=== PATIENT | male | born 1930 | race Caucasian/White ===

== ENCOUNTER 2019-09-12 13:22 | Inpatient (IN) | payer MEDICARE ==
[2019-09-12] MEDS ORDERED: Ondansetron PF 4 MG/2 ML Vial IVP PRN (15:28)
[2019-09-12 16:06] LABS: Hemoglobin 15.4 g/dL (14.0-18.0); Mean Corpuscular HGB CONC 33.6 g/dL (32.0-36.0); Mean Corpuscular Hemoglobin 32.1 pg (27.0-31.0); Mean Corpuscular Volume 95.5 fL (78.0-98.0); Mean Platelet Volume 6.6 fL (7.4-10.4); Platelet Count 224 thou/uL (130-400); RBC Distribution Width 12.6 % (11.5-14.5); Red Blood Cell (RBC) Count 4.79 mill/uL (4.70-6.10); White Blood Cell (WBC) Count 28.9 thou/uL (4.8-10.8)
[2019-09-12 16:15] LABS: ALT (SGPT) 21 U/L (8-55); AST (SGOT) 23 U/L (5-34); Albumin 4.1 g/dL (3.4-4.8); Alkaline Phosphatase 81 U/L (40-110); Anion Gap 13 mmol/L (10-20); BUN (Urea Nitrogen) 13 mg/dL (8.4-25.7); Bilirubin, Total 1.9 mg/dL (0.2-1.2); Calc. Creatinine Clearance 0 mL/min (70-130); Calcium 9.7 mg/dL (7.8-10.44); Carbon Dioxide 29 mmol/L (23-31); Chloride 98 mmol/L (98-107); Estimated GFR-MDRD 67; Globulin 2.6 g/dL (2.4-3.5); Glucose 95 mg/dL (83-110); Protein, Total 6.7 g/dL (5.8-8.1); Sodium 136 mmol/L (136-145)
[2019-09-12 16:36] LABS: Band 1 % (5-11); Eosinophils 1 % (0-10); Lymphocytes 72 % (21-51); MDiff Complete? YES; Monocytes 4 % (0-10); Neutrophil 22 % (42-75)
[2019-09-12 17:37] VITALS: BMI 24.3
[2019-09-12] MEDS ORDERED: Bupivacaine/Epinephrine 0.5% 10 ML VIAL IJ SCH (18:30)
--- NOTE | 2019-09-12 21:30 | OP ---
DATE OF PROCEDURE: 09/12/2019 PREPROCEDURE DIAGNOSES: 1. Gross hematuria. 2. Clot retention. 3. Ewing trauma. 4. History of urinary retention. POSTPROCEDURE DIAGNOSES: 1. Gross hematuria. 2. Clot retention. 3. Ewing trauma. 4. History of urinary retention. 5. Benign prostatic hypertrophy with obstruction. PROCEDURES: 1. Cystourethroscopy. 2. Complicated Ewing catheter placement over Glidewire. BRIEF HISTORY: Mr. Ras Bess is a pleasant 89-year-old white male with a degree of dementia, who presented to the emergency room, [facility] jail due to traumatic Ewing catheterization with gross blood per urethra. Patient had failed Ewing catheter placement x4 reportedly as outpatient and two attempted catheterizations here failed. I was consulted to evaluate and assess the patient at that point. Please see my separately dictated consultation evaluation note for this patient. Briefly, we found the patient having gross blood passing per urethra and recommended cystoscopic evaluation. Consent was obtained by telephone from the patient's daughter. The patient assented to the procedure. Following appropriate time-out, we proceeded with cystoscopic evaluation of the patient. We initially prepped and draped the patient using Betadine. The patient's phimotic foreskin was found to be in the retracted position on initial evaluation. This caused some edema of the glans penis and we did end up having to perform a glans reduction as a portion of the procedure as well. Cystoscopic evaluation was performed using a 14-[place] cystourethroscope fiberoptic type. We instilled 5 mL of 2% viscous lidocaine jelly per urethra. After installation of viscous lidocaine jelly per urethra, we accessed the patient's urethra using the flexible cystoscope. We did not find any traumatic areas from balloon-type trauma in the urethra. There were a couple of small false passages which were bleeding. The irrigation was adequate to allow us to find the urinary sphincter and bypassed this in the patient's prostatic urethra, which was irregularly shaped. Patient's bladder was entered. This was relatively dark. There was some clot material present in the patient's bladder as well as blood. Due to murky conditions, this was a limited cystoscopic evaluation. We passed a 0.035 angled Glidewire into the patient's bladder through the scope leaving the wire in place. We then converted to a 3-way silastic Ewing catheter into a Councill tip catheter by passing a 20-gauge needle through the very tip of the catheter. We then passed this catheter over the wire into the patient's bladder. We then filled the balloon to 30 mL. The patient's bladder was drained of a liter of urine. A urine specimen was later collected for culture from this. We then placed the catheter to 3-way irrigation using sterile water initially to be followed by sterile saline later in the day. At the present time, patient has hematuria controlled by continuous bladder irrigation. Patient's catheter lines were taped to the left leg. Patient tolerated the procedure well with no complications in evidence. Job ID: [id number]
[2019-09-12] MEDS: Acetaminophen 325 MG TAB PO PRN (22:59)
[2019-09-12] MEDS ORDERED: Zolpidem Tartrate 5 MG TAB PO SCH (23:00)
[2019-09-13 05:20] LABS: Anion Gap 11 mmol/L (10-20); BUN (Urea Nitrogen) 15 mg/dL (8.4-25.7); Calc. Creatinine Clearance 74 mL/min (70-130); Calcium 8.9 mg/dL (7.8-10.44); Carbon Dioxide 26 mmol/L (23-31); Chloride 101 mmol/L (98-107); Estimated GFR-MDRD 86; Glucose 87 mg/dL (83-110); Potassium 3.7 mmol/L (3.5-5.1); Sodium 134 mmol/L (136-145)
[2019-09-13 06:22] LABS: Hemoglobin 13.4 g/dL (14.0-18.0); Mean Corpuscular HGB CONC 34.1 g/dL (32.0-36.0); Mean Corpuscular Hemoglobin 32.3 pg (27.0-31.0); Mean Corpuscular Volume 94.6 fL (78.0-98.0); Mean Platelet Volume 6.7 fL (7.4-10.4); Platelet Count 194 thou/uL (130-400); RBC Distribution Width 12.5 % (11.5-14.5); Red Blood Cell (RBC) Count 4.14 mill/uL (4.70-6.10); White Blood Cell (WBC) Count 20.9 thou/uL (4.8-10.8)
[2019-09-13 06:47] LABS: Eosinophils 1 % (0-10); Lymphocytes 60 % (21-51); MDiff Complete? YES; Monocytes 3 % (0-10); Neutrophil 33 % (42-75); Reactive Lymphocytes 3 % (0-10)
[2019-09-13] MEDS ORDERED: Lisinopril 20 MG TAB PO PRN (08:04)
[2019-09-13] MEDS: Tamsulosin HCl 0.4 MG CAP PO SCH (10:25)
[2019-09-13] MEDS: Hydrochlorothiazide 25 MG TAB PO SCH (10:25)
--- NOTE | 2019-09-13 15:32 | CON ---
DATE OF CONSULTATION: 09/13/2019 REASON FOR CONSULTATION: 1. Gross hematuria. 2. Clot retention. 3. Ewing trauma. 4. History of urinary retention with current urinary retention. 5. Prostate hypertrophy with obstruction. BRIEF HISTORY: Mr. Ras Bess is a pleasant 89-year-old white male with dementia, who was brought to the emergency room, transferred from his detention due to traumatic Ewing catheterization with gross blood per urethra. The patient was thought to be in urinary retention and subsequently was proven to be yesterday with placement of Ewing catheter returned about a liter of urine. The patient in general relief from his lower abdominal discomfort at that point. At present time, the patient is doing much better. He does have an indwelling Ewing catheter, which still evidence of some gross hematuria, this is a very low level. The patient reports a sensation that he needs to void consistent with bladder spasms. He has had some blood passed around the outside of the catheter, which was normal in the bladder spasm situation, does have a fair amount of blood in that, but this is less than was observed yesterday. Overall, Mr. Bess is doing well. PHYSICAL EXAMINATION: VITAL SIGNS: The patient's temperature is 97.2, pulse 94, respirations 18, room air saturation is 95%, blood pressure is 137/72. GENERAL: Pleasant, awake, alert white male. He has memory deficits over the short haul. Does have some good recall for distant events and family member names, etc. LUNGS: Clear bilaterally. CARDIAC: Regular rate and rhythm. ABDOMEN: Soft and nontender. BACK: No costovertebral tenderness on either side. No spine tenderness. GENITOURINARY: Indwelling 3-way Ewing catheter remains in place. CBI is at very low rate. The continuous bladder irrigation has been titrated down to a low enough level that urine is only pink at this point. The patient does have some blood which passes around the catheter. This is evident on his bedside commode. This is apparently well straining or when having bladder spasms. Catheter is correctly attached to the patient's leg using Microfoam tape. EXTREMITIES: Otherwise within normal limits. LABORATORY STUDIES: The patient's white count is decreased to 20,900 today. Hemoglobin is 13.4 with hematocrit of 39.2, platelet count is 194, minimally decreased from yesterday. Percent neutrophil count is 33, increased from yesterday when it was 22. Serum chemistry showed the patient's creatinine down to 0.84 today. Blood urea nitrogen at 15. The patient's urinary sodium is slightly decreased to 134 from 136 yesterday. Microbiology; urine culture remains pending. ASSESSMENT AND PLAN: 1. Gross hematuria. The patient is still having some degree of bleeding and continuous bladder irrigation is still indicated. 2. Presumed urinary tract infection due to retention. The patient is on appropriate antibiotic coverage at the present time and culture is pending. 3. Indurated prostate gland with outlet obstruction. I am planning on starting the patient on finasteride today and did recommend going ahead and obtaining a PSA test. The patient does not have a PSA test on record in this facility. 4. Outlet obstruction. The patient needs maximal medical therapy and is on tamsulosin. I am recommending continuation of that and adding finasteride to his mix as this may also decrease the diameter of some of the blood vessels in his prostate and decrease overall bleeding. 5. Bladder spasms. The patient was started on VESIcare 5 mg p.o. daily. Belladonna and opioid suppositories could be used acutely in this patient. However, due to his age, the narcotic load may be significant, therefore would recommend pediatric size B and O suppositories to be utilized if necessary. Over 35 minutes of consultation assessment and evaluation time was spent in the assessment of this patient exclusive of any procedures performed. Job ID: [id number]
[2019-09-13] MEDS ORDERED: Zolpidem Tartrate 5 MG TAB PO SCH (21:00)
[2019-09-13] MEDS: Trospium 20 MG TAB PO SCH (21:04)
[2019-09-13] MEDS: Acetaminophen 325 MG TAB PO PRN (21:04)
[2019-09-13] MEDS: Atorvastatin Calcium 10 MG TAB PO SCH (21:04)
[2019-09-14 05:34] LABS: Anion Gap 13 mmol/L (10-20); BUN (Urea Nitrogen) 19 mg/dL (8.4-25.7); Calc. Creatinine Clearance 65 mL/min (70-130); Calcium 9.2 mg/dL (7.8-10.44); Carbon Dioxide 25 mmol/L (23-31); Chloride 101 mmol/L (98-107); Estimated GFR-MDRD 74; Glucose 97 mg/dL (83-110); Potassium 3.9 mmol/L (3.5-5.1); Sodium 135 mmol/L (136-145)
[2019-09-14] MEDS: Levothyroxine Sodium 50 MCG TAB PO SCH (05:52)
[2019-09-14 07:49] LABS: Band 2 % (5-11); Eosinophils 2 % (0-10); Hemoglobin 13.9 g/dL (14.0-18.0); Lymphocytes 55 % (21-51); MDiff Complete? YES; Mean Corpuscular HGB CONC 33.9 g/dL (32.0-36.0); Mean Corpuscular Hemoglobin 32.3 pg (27.0-31.0); Mean Corpuscular Volume 95.2 fL (78.0-98.0); Mean Platelet Volume 6.7 fL (7.4-10.4); Monocytes 8 % (0-10); Neutrophil 33 % (42-75); Platelet Count 211 thou/uL (130-400); RBC Distribution Width 12.5 % (11.5-14.5); Red Blood Cell (RBC) Count 4.31 mill/uL (4.70-6.10); White Blood Cell (WBC) Count 27.4 thou/uL (4.8-10.8)
[2019-09-14] MEDS: Trospium 20 MG TAB PO SCH ×2 (09:12→20:28)
[2019-09-14] MEDS: Hydrochlorothiazide 25 MG TAB PO SCH (09:12)
[2019-09-14] MEDS: Finasteride 5 MG TAB PO SCH (09:12)
[2019-09-14] MEDS: Tamsulosin HCl 0.4 MG CAP PO SCH (09:12)
[2019-09-14] MEDS ORDERED: Senokot S 8.6-50 MG TAB PO PRN (12:46)
--- NOTE | 2019-09-14 12:54 | PDOC.HOSPP ---
- Subjective Encounter Date: 09/14/19 Encounter Time: 12:45 Subjective: f/u gross hematuria on Xarelto in context of traumatic Simon catheter insertion , clot retention with urinary retention improved with Simon decompression and bladder irrigation. Receiving Levaquin with negative Ucx. - Objective Vital Signs & Weight: Vital Signs (12 hours) Temp Pulse Resp BP BP Pulse Ox 09/14/19 12:04 97.2 F L 102 H 16 104/72 97 09/14/19 07:52 97.4 F L 89 18 124/62 94 L 09/14/19 03:35 89 18 139/73 95 Weight Weight 189 lb 3.2 oz I&O: 09/13/19 09/14/19 09/15/19 06:59 06:59 06:59 Intake Total 3700 3220 100 Output Total 5575 7250 Balance -1875 -4030 100 Result Diagrams: 09/14/19 04:42 09/14/19 04:42 Additional Labs: Microbiology 09/07/19 03:12 Stool Stool Culture - Final 09/12/19 19:00 Urine simon catheter Urine Culture - Preliminary NO GROWTH AT 24 HOURS Laboratory Tests 09/12/19 09/13/19 09/13/19 15:40 04:37 12:56 WBC 28.9 H 20.9 H Prostate Specific Ag 9.61 H Hospitalist ROS - Medication Medications: Active Medications Generic Name Dose Route Start Last Admin Trade Name Freq PRN Reason Stop Dose Admin Acetaminophen 650 mg 09/12/19 15:28 09/13/19 21:04 Tylenol PO 650 mg Q4H PRN Administration Headache/Fever/Mild Pain (1-3) Atorvastatin Calcium 10 mg 09/13/19 21:00 09/13/19 21:04 Lipitor PO 10 mg HS NAVID Administration Finasteride 5 mg 09/14/19 09:00 09/14/19 09:12 Proscar PO 5 mg DAILY NAVID Administration Hydrochlorothiazide 25 mg 09/13/19 09:00 09/14/19 09:12 Hydrochlorothiazide PO 25 mg DAILY NAVID Administration Levofloxacin 500 mg/ Device 100 mls @ 100 mls/hr 09/13/19 08:00 09/14/19 09: 13 IVPB 100 mls 0800 NAVID Administration Levothyroxine Sodium 50 mcg 09/14/19 06:00 09/14/19 05:52 Synthroid PO 50 mcg 0600 NAVID Administration Tamsulosin HCl 0.4 mg 09/13/19 09:00 09/14/19 09:12 Flomax PO 0.4 mg DAILY NAVID Administration Trospium 20 mg 09/13/19 21:00 09/14/19 09:12 Trospium PO 20 mg BID NAVID Administration - Exam General Appearance: NAD, awake alert Eye: PERRL, anicteric sclera ENT: normocephalic atraumatic, no oropharyngeal lesions Neck: supple, symmetric, no JVD, no thyromegaly, no lymphadenopathy Heart: RRR, no gallops, no rubs, normal peripheral pulses Respiratory: CTAB, no wheezes, no rales, no ronchi Gastrointestinal: soft, non-tender, non-distended, normal bowel sounds, no palpable masses Extremities: no cyanosis, no clubbing, no edema Skin: normal turgor, no lesions Neurological: cranial nerve grossly intact, no new deficit Musculoskeletal: normal tone, generalized weakness Psychiatric: oriented to person, oriented to place Hosp A/P (1) Acute urinary retention Code(s): R33.8 - OTHER RETENTION OF URINE Status: Acute Plan: s/p Simon insertion with bladder decompression, continue Flomax/Vesicare/ Finasteride, appreciate Urology assistance (2) Gross hematuria Status: Acute Plan: Continue CBI, hold Xarelto, serial H/H (3) Chronic anticoagulation Code(s): Z79.01 - ENDOSCOPY NURSE (CURRENT) USE OF ANTICOAGULANTS Status: Chronic Plan: Hold Xarelto (4) Hypothyroid Code(s): E03.9 - HYPOTHYROIDISM, UNSPECIFIED Status: Chronic Plan: Continue Levothyroxine 50mcg daily (5) Leukocytosis Code(s): D72.829 - ELEVATED WHITE BLOOD CELL COUNT, UNSPECIFIED Status: Acute Qualifiers: Leukocytosis type: lymphocytosis Qualified Code(s): D72.820 - Lymphocytosis (symptomatic) Plan: Predominance of lymphocytes on differential, continue Levaquin, serial monitoring - Plan plan discussed w/ family, continue antibiotics, PT/OT, out of bed/ambulate, DVT proph w/SCDs Stable currently Continue CBI weaning per Urology recommendations Continue Levaquin PT for mobilization Transfer to medical floor Hold Xarelto AM lab: CBC
--- NOTE | 2019-09-14 14:58 | PRG ---
DATE OF SERVICE: 09/14/2019 INITIAL REASON FOR CONSULTATION: 1. Urinary retention. 2. Gross hematuria. 3. Clot retention. 4. History of traumatic urethral catheterization. SUBJECTIVE: Mr. Ras Bess is a very pleasant, but demented white male, who is 89-year-old, was brought to the emergency room, transferred from his long-term due to traumatic Ewing catheterization with gross blood per urethra. The patient was thought to be in urinary retention and this was subsequently proven at Ewing catheter placement cystoscopically on 09/12/2019. The patient had about a liter of urine in his bladder at that point. Mr. Bess also has markedly elevated white count, but this may in fact be due to an underlying CLL malignancy as he has a lymphocytic predominant differential and does have a diagnosis of CLL on his admission paperwork. Mr. Bess is not able to provide any information about his CLL, although he reports having been cared for at a hospital in [place] for that presumably the [facility]. OBJECTIVE: VITAL SIGNS: The patient is currently afebrile, temperature 97.2, pulses varying from 89 to 102 during the day with some bladder spasms. Respiratory rate 16, O2 saturations 97% on room air, and blood pressure is 104/72. HEAD, EYES, EARS, NOSE, AND THROAT: Extraocular movements are intact. Sclerae are anicteric. Oropharynx is clear. LUNGS: Clear bilaterally. CARDIAC: He has a regular rate and rhythm. ABDOMEN: Soft and nontender. GENITOURINARY: Ewing catheter remains in place is secured by a StatLock. I did reposition this to only the filled balloon side as this was obstructing the catheter. There was minimal blood per meatus around the catheter. The CBI is at a minimal rate at this point with predominantly clear urine with only trace amount of blood present. The patient is attempting a bowel movement today. LABORATORY STUDIES: The patient white count relatively consistently elevated now at 27.4, close to the admission white count. The hemoglobin is 13.9 with hematocrit of 41.1. He has a lymphocyte predominance with 55% lymphocytes and only a 33% neutrophils present. There is only two bands suggesting he does not have an acute infectious process. ASSESSMENT AND PLAN: 1. Urinary retention. The patient will be on maximal medical therapy and should continue that as an outpatient. May be discharged back to his nursing facility with the catheter in place. It is ideally would stay indwelling for at least one weeks time and return to my clinic for a voiding trial around September 30 to . This could be accomplished in my clinic. Alternatively, he may be handled in rehab at that point. Does need to have the catheter indwelling for a minimum period of one week and I think a little bit longer might be beneficial given the trauma to his urethra. 2. Benign prostatic hyperplasia with obstructive voiding symptoms. I am recommending the patient continue on his current medication regimen, which includes levofloxacin 500 mg per day, finasteride 5 mg per day, and tamsulosin 0.4 mg per day. The trospium may be continued as an outpatient, but should discontinue at least two days prior to his voiding trial. Over a 35 minutes of consultation, and assessment, and coordination of care time was spent in evaluation of assessment of this patient today. Job ID: [id number]
[2019-09-14] MEDS: Zolpidem Tartrate 5 MG TAB PO SCH (20:28)
[2019-09-14] MEDS: Atorvastatin Calcium 10 MG TAB PO SCH (20:28)
[2019-09-14] MEDS: Acetaminophen 325 MG TAB PO PRN (20:28)
[2019-09-14] MEDS ORDERED: traMADol HCl 50 MG TAB PO PRN (23:28)
[2019-09-15] MEDS: Levothyroxine Sodium 50 MCG TAB PO SCH (05:12)
[2019-09-15 05:16] LABS: Eosinophils 2 % (0-10); Hemoglobin 13.1 g/dL (14.0-18.0); Lymphocytes 59 % (21-51); MDiff Complete? YES; Mean Corpuscular HGB CONC 33.6 g/dL (32.0-36.0); Mean Corpuscular Hemoglobin 32.2 pg (27.0-31.0); Mean Corpuscular Volume 95.7 fL (78.0-98.0); Mean Platelet Volume 6.8 fL (7.4-10.4); Monocytes 4 % (0-10); Neutrophil 34 % (42-75); Platelet Count 184 thou/uL (130-400); RBC Distribution Width 12.5 % (11.5-14.5); Reactive Lymphocytes 1 % (0-10); Red Blood Cell (RBC) Count 4.06 mill/uL (4.70-6.10); White Blood Cell (WBC) Count 19.2 thou/uL (4.8-10.8)
--- NOTE | 2019-09-15 08:21 | HP ---
CHIEF COMPLAINT: Urinary retention. HISTORY OF PRESENT ILLNESS: The patient is an 89-year-old male, who developed some weakness and was hospitalized at the [facility] approximately a week or two ago and he was sent to the rehab for further physical therapy. Apparently, his urine output was significantly diminished and at the rehab, they tried to put the Ewing catheter in 4 times and they were not able to get it in and he was sent to the emergency room for catheter placement. After three attempts in the emergency room on-call urologist was called in to manage this urinary retention because nobody was able to put the catheter in. He does not have complaints of any other problems except for some generalized weakness recently, but he noticed that urinary flow was kind of diminished recently and gradually got worse. He denied any fever or chills. He denied any chest pain or shortness of breath. PAST MEDICAL HISTORY: 1. Positive for chronic atrial fibrillation. 2. CLL. 3. Hypertension. 4. Urinary retention. 5. Hyponatremia. PAST SURGICAL HISTORY: 1. Cervical fusion. 2. Tonsillectomy. MEDICATIONS: Levothyroxine 50 mcg once a day, lisinopril 20 mg once a day, atorvastatin 40 mg once a day, Xarelto 20 mg daily, zolpidem 5 mg daily. ALLERGIES: PENICILLIN. FAMILY HISTORY: Noncontributory. REVIEW OF SYSTEMS: All 14 systems were reviewed and they were negative except for those symptoms, which are mentioned at HPI. PHYSICAL EXAMINATION: VITAL SIGNS: Blood pressure is 140/88, pulse is 84, respirations 18, temperature is 98.0. Pain is 0. O2 saturation is 94% on room air. HEENT: Head is atraumatic and normocephalic. Eyes are PERRLA. Sclerae are nonicteric. Oral mucosa is moist. NECK: Supple. No lymphadenopathy. Thyroid is not palpable. LUNGS: Clear. HEART: S1, S2 normal. Regular. No S3 no S4. ABDOMEN: Soft although somewhat distended in the suprapubic area and tender to palpation in this area. EXTREMITIES: No clubbing, cyanosis, or edema. He has somewhat diminished pulses on both tibialis posterior and dorsalis pedis arteries which are similar bilaterally NEUROLOGICAL: He follows my commands. He moves his all 4 extremities. He has some memory problem. He states that this is going on for quite some time. LABORATORY DATA: Pending. IMPRESSION: 1. Urinary retention. I suspect that prostate is the source of the problem and that is why the attempts for urinary catheter insertion failed. Urologists is consulted. Dr. Smith was informed about the situation and the patient is going to be admitted to the hospital for management of the problem. 2. History of hypertension. 3. History of chronic lymphocytic leukemia. 4. History of atrial fibrillation. 5. History of hyponatremia. PLAN: Admission for observation. CONDITION: Fair. ACTIVITY: Bedrest and bathroom privileges. IV Hep-Lock. DVT prophylaxis with SCDs. No heparin. Urology consultation with Dr. Smith. We will reconcile home medications. Job ID: [id number]
[2019-09-15] MEDS: Finasteride 5 MG TAB PO SCH (08:43)
[2019-09-15] MEDS: Hydrochlorothiazide 25 MG TAB PO SCH (08:43)
[2019-09-15] MEDS: Trospium 20 MG TAB PO SCH ×2 (08:43→21:07)
[2019-09-15] MEDS: Tamsulosin HCl 0.4 MG CAP PO SCH (08:43)
--- NOTE | 2019-09-15 17:08 | PDOC.HOSPP ---
- Subjective Encounter Date: 09/15/19 Encounter Time: 08:10 Subjective: f/u for urinary retention, gross hematuria after traumatic Simon catheter insertion on Xarelto and BPH. Feels better overall and urine clear in Simon bag after CBI. Plan for return to inpt rehab. - Objective Vital Signs & Weight: Vital Signs (12 hours) Temp Pulse Resp BP Pulse Ox 09/15/19 11:49 97.6 F 86 20 91/54 L 95 09/15/19 08:00 95 09/15/19 07:57 97.6 F 83 20 114/79 95 Weight Weight 189 lb 3.2 oz I&O: 09/14/19 09/15/19 09/16/19 06:59 06:59 06:59 Intake Total 3220 1290 Output Total 7250 3300 -4029 Result Diagrams: 09/15/19 04:40 09/14/19 04:42 Additional Labs: Microbiology 09/07/19 03:12 Stool Stool Culture - Final 09/12/19 19:00 Urine simon catheter Urine Culture - Preliminary NO GROWTH AT 24 HOURS Laboratory Tests 09/12/19 09/13/19 09/13/19 15:40 04:37 12:56 WBC 28.9 H 20.9 H Prostate Specific Ag 9.61 H Hospitalist ROS - Medication Medications: Active Medications Generic Name Dose Route Start Last Admin Trade Name Freq PRN Reason Stop Dose Admin Acetaminophen 650 mg 09/12/19 15:28 09/14/19 20:28 Tylenol PO 650 mg Q4H PRN Administration Headache/Fever/Mild Pain (1-3) Atorvastatin Calcium 10 mg 09/13/19 21:00 09/14/19 20:28 Lipitor PO 10 mg HS NAVID Administration Finasteride 5 mg 09/14/19 09:00 09/15/19 08:43 Proscar PO 5 mg DAILY NAVID Administration Hydrochlorothiazide 25 mg 09/13/19 09:00 09/15/19 08:43 Hydrochlorothiazide PO 25 mg DAILY NAVID Administration Levofloxacin 500 mg/ Device 100 mls @ 100 mls/hr 09/13/19 08:00 09/15/19 08: 43 IVPB 100 mls 0800 NAVID Administration Levothyroxine Sodium 50 mcg 09/14/19 06:00 09/15/19 05:12 Synthroid PO 50 mcg 0600 NAVID Administration Tamsulosin HCl 0.4 mg 09/13/19 09:00 09/15/19 08:43 Flomax PO 0.4 mg DAILY NAVID Administration Tramadol HCl 50 mg 09/14/19 23:28 09/15/19 00:25 Ultram PO 50 mg Q4H PRN Administration Moderate to Severe Pain (6-10) Trospium 20 mg 09/13/19 21:00 09/15/19 08:43 Trospium PO 20 mg BID NAVID Administration Zolpidem Tartrate 10 mg 09/14/19 21:00 09/14/19 20:28 Ambien PO 10 mg HS NAVID Administration - Exam General Appearance: NAD, awake alert Eye: PERRL, anicteric sclera ENT: normocephalic atraumatic, no oropharyngeal lesions Neck: supple, symmetric, no JVD, no thyromegaly Heart: RRR, no gallops, no rubs, normal peripheral pulses Respiratory: CTAB, no wheezes, no rales, no ronchi Gastrointestinal: soft, non-tender, non-distended, normal bowel sounds Extremities: no cyanosis, no clubbing, no edema Skin: normal turgor, no lesions Neurological: cranial nerve grossly intact, no new deficit Musculoskeletal: normal tone, generalized weakness Psychiatric: oriented to person, oriented to place Hosp A/P (1) Acute urinary retention Code(s): R33.8 - OTHER RETENTION OF URINE Status: Acute Plan: s/p bladder decompression with Simon catheter, continue Simon for approx 1 week with plans for outpt voiding trial with Urology (2) Gross hematuria Status: Acute Plan: Resolving, hold anticoagulation (3) Chronic anticoagulation Code(s): Z79.01 - LASERIST (CURRENT) USE OF ANTICOAGULANTS Status: Chronic Plan: Hold Xarelto (4) Hypothyroid Code(s): E03.9 - HYPOTHYROIDISM, UNSPECIFIED Status: Chronic Plan: Chronic, stable, continue Levothyroxine (5) Leukocytosis Code(s): D72.829 - ELEVATED WHITE BLOOD CELL COUNT, UNSPECIFIED Status: Chronic Qualifiers: Leukocytosis type: lymphocytosis Qualified Code(s): D72.820 - Lymphocytosis (symptomatic) (6) CLL (chronic lymphocytic leukemia) Code(s): C91.10 - CHRONIC LYMPHOCYTIC LEUK OF B-CELL TYPE NOT ACHIEVE REMIS Status: Chronic Plan: Leukocytosis secondary to CLL - Plan continue antibiotics, PT/OT, social organization professor, out of bed/ambulate, DVT proph w/ SCDs Stable currently Continue CBI weaning per Urology recommendations Continue Simon catheter for approx 1 week Continue Levaquin PT for mobilization Transfer to medical floor Hold [place] Plan for transfer to in rehab in 24h
[2019-09-15] MEDS: Zolpidem Tartrate 5 MG TAB PO SCH (21:07)
[2019-09-15] MEDS: Atorvastatin Calcium 10 MG TAB PO SCH (21:08)
--- NOTE | 2019-09-15 21:29 | CON ---
DATE OF CONSULTATION: 09/15/2019 INITIAL REASON FOR CONSULTATION: 1. Gross hematuria. 2. Clot retention. 3. Ewing trauma. 4. History of urinary retention with current urinary retention. 5. Prostate hypertrophy with obstruction. BRIEF HISTORY: Mr. Ras Bess is a pleasant 89-year-old white male with dementia who was brought to the emergency room, transferred from his long term due to a traumatic Ewing catheterization attempt with gross blood per urethra. The patient was thought to be in urinary retention. This was subsequently proven with Ewing catheter placement. He did require cystoscopic placement of his Ewing catheter. There were urethral false passages noted. His gross hematuria rapidly improved, though he was on continuous bladder irrigation until this morning. Mr. Bess is doing well now. PHYSICAL EXAMINATION: VITAL SIGNS: Temperature is 97.6, pulse 86, respirations 20, O2 saturations 95% on room air, blood pressure is 91/54. GENERAL: This is a pleasant awake, alert, white male. He does have short-term memory issues. He does have reasonable long-term memory. HEAD, EYES, EARS, NOSE, AND THROAT: Extraocular movements are intact. Sclerae anicteric. Oropharynx is clear. NECK: Supple. LUNGS: Clear to auscultation bilaterally. CARDIAC: Regular rate and rhythm. ABDOMEN: Soft and nontender. There is no evidence of suprapubic distention. GENITOURINARY: The phallus is uncircumcised. The foreskin is found in retracted position. There is a paraphimosis today. This was reduced on a course of physical exam without difficulty. Indwelling Ewing catheter remains in place, this is a three-way Ewing catheter. We turned off the continuous bladder irrigation and did not observe development of gross hematuria, we will leave his irrigation to catheter plug at this point. Extremities appear otherwise within normal limits. LABORATORY STUDIES: The patient has a white count of 19,200 consistent with his known diagnosis of CLL. Hemoglobin is 13.1 with hematocrit of 38.9. There is no left shift with 34% neutrophils. Serum chemistry show normal results on 09/14/2019. There are no new labs available for today. Microbiology, there was no growth in the patient's urine culture at 48 hours. This is consistent with the patient's hematologic evaluation showing no left shift. ASSESSMENT/PLAN: 1. Gross hematuria. The patient will need a formal hematuria evaluation in clinic. This can be delayed until the patient is stabilized and has undergone a proper voiding trial. At present the time, as gross hematuria appears to be most likely due to traumatic Ewing catheterization. 2. Presumed urinary tract due to infection with urinary retention. The patient is on current antibiotic coverage. Given the large prostate gland, treatment for prostatitis type course of antibiotics would be appropriate at discharge. 3. Indurated prostate gland with outlet obstruction. The patient had a PSA test performed due to the retention episode and indurated prostate gland. He does have an elevated PSA of 9.61. This remains an elevated PSA at followup and after voiding trial, I would recommend consideration of a biopsy, this does give a possible medical avenue for treatment of his outlet obstruction. 4. Outlet obstruction. The patient will be discharged to his long term with indwelling Ewing catheter in place. He will undergo a voiding trial in my office on 09/23/2019 at 3:30 p.m., which will be his followup appointment. He will follow up with my office at the [facility] at [address] [place] [address] for that voiding trial. 5. Bladder spasms, currently managed using trospium, which should be discontinued 48 hours prior to his presentation to my office. Over 35 minutes of consultation and assessment time was spent in the evaluation of this patient, exclusive of any procedures performed. Job ID: [id number]
[2019-09-16] MEDS: Levothyroxine Sodium 50 MCG TAB PO SCH (05:14)
[2019-09-16] MEDS: Tamsulosin HCl 0.4 MG CAP PO SCH (07:53)
[2019-09-16] MEDS: Trospium 20 MG TAB PO SCH (07:53)
[2019-09-16] MEDS: Hydrochlorothiazide 25 MG TAB PO SCH (07:53)
[2019-09-16] MEDS: Finasteride 5 MG TAB PO SCH (07:53)
[2019-09-16 14:43] VITALS: BP 111/68; TEMP 97.9
--- NOTE | 2019-09-16 15:10 | DIS ---
DATE OF ADMISSION: 09/14/2019 DATE OF DISCHARGE: 09/16/2019 DISCHARGE DIAGNOSES: 1. Acute urinary retention, status post bladder decompression with Ewing catheter insertion. 2. Gross hematuria secondary to traumatic Ewing catheter insertion and chronic Xarelto, resolving. 3. Benign prostatic hyperplasia. 4. Chronic anticoagulation, with Xarelto. 5. Hypothyroidism. 6. Chronic lymphocytic leukemia. CONSULTATIONS: Dr. Raffaele Smith with [facility]. PERTINENT LABORATORY AND X-RAY FINDINGS: Prostate specific antigen 9.61 on 09/13/2019. CBC showed a white blood cell count ranging between 19.2 to 28.9, hemoglobin ranged between 13.1 to 15.4. Urine culture dated 09/12/2019, showed no growth at 48 hours. HOSPITAL COURSE: The patient was initially admitted after presenting with acute urinary retention with generalized weakness and inability to pass Ewing catheter. The patient was evaluated by the Urology Service after attempted placement of Ewing catheter with traumatic Ewing insertion. The patient had return of approximately 1 L of urine after successful placement by [facility]rology Service. The patient was noted with gross hematuria after catheter insertion and placed on continuous bladder irrigation. Xarelto was discontinued during the hospital course and urine cleared with bladder irrigation and holding anticoagulation therapy. Urology evaluation recommended continuation of Ewing catheter for bladder decompression and a voiding trial after discharge approximately 1 week. The patient was placed on a regimen of Proscar, Flomax, and trospium without complication. Overall, the patient did remain clinically stable with serial hemoglobin monitoring showing stable values. I have examined the patient at the time of discharge and discussed followup instructions. The patient verbalized understanding and in agreement and ready for discharge on 09/16/2019. DISCHARGE MEDICATIONS: 1. Hydrochlorothiazide 25 mg p.o. daily. 2. Levothyroxine 50 mcg p.o. daily. 3. Lisinopril 20 mg p.o. daily. 4. Zocor 20 mg p.o. at bedtime. 5. Flomax 0.4 mg p.o. daily. 6. Ambien 10 mg p.o. at bedtime. 7. Proscar 5 mg p.o. daily. 8. Xarelto 20 mg p.o. daily, hold until 09/18/2019. 9. Trospium 20 mg p.o. b.i.d., discontinue on 09/21/2019 prior to voiding trial on 09/23/2019. FOLLOWUP: The patient may follow up with his primary care provider, Dr. Raffaele Gonzalez. The patient may follow up with Dr. Raffaele Smith with [facility]rology [facility] on 09/23/2019, at 3:30 p.m. CONDITION ON DISCHARGE: Stable. ACTIVITY: Ad-bull. rolling walker for ambulation. DIET: Regular. CODE STATUS: Full. DISPOSITION: Discharged to [facility], 09/16/2019. TIME SPENT: Total time preparing and coordinating discharge, 33 minutes. Job ID: [id number]
== END 2019-09-16 15:51 | DRG 699 ==
LOC: ERS 13:22 → 2SW 17:35 → OBSVTOIN 09-14 12:43 → T4-B 09-14 15:12
PROVIDERS: ADMIT Internal Medicine; ATTEND Internal Medicine
PROC: 0T9B80Z Drainage of Bladder with Drainage Device, Via Natural or Artificial Opening Endoscopic (ICD-10-PCS; principal; 2019-09-12)
DX: T83.83XA Hemorrhage due to genitourinary prosthetic devices, implants and grafts, initial encounter (principal); N13.8 Other obstructive and reflux uropathy; I48.20 Chronic atrial fibrillation, unspecified; C91.10 Chronic lymphocytic leukemia of B-cell type not having achieved remission; E87.1 Hypo-osmolality and hyponatremia; N39.0 Urinary tract infection, site not specified; N40.1 Benign prostatic hyperplasia with lower urinary tract symptoms; R33.8 Other retention of urine; R31.0 Gross hematuria; N32.89 Other specified disorders of bladder; T45.515A Adverse effect of anticoagulants, initial encounter; E03.9 Hypothyroidism, unspecified; I10 Essential (primary) hypertension; Z98.1 Arthrodesis status; Z79.890 Hormone replacement therapy; Z79.01 Long term (current) use of anticoagulants; Z79.899 Other long term (current) drug therapy; Z88.0 Allergy status to penicillin; F03.90 Unspecified dementia, unspecified severity, without behavioral disturbance, psychotic disturbance, mood disturbance, and anxiety; Y84.6 Urinary catheterization as the cause of abnormal reaction of the patient, or of later complication, without mention of misadventure at the time of the procedure
CPT/HCPCS: 36415; 51701; 80048; 84153; 85007; 85025; 85027; 87086; J1956